=== PATIENT | female | born 1995 | race Caucasian/White ===

== ENCOUNTER 2021-12-27 01:16 | Day surgery (SDC) | payer OTHER, SELFPAY ==
[2021-12-21 14:10] VITALS: BMI 31.8
--- NOTE | 2021-12-21 14:56 | PC.NURSE ---
Report to the Outpatient Waiting Room, entrance under the green pavilion located off [facility], at time 0600 on 12-27-21. OR Time: 0730. - You and your visitor will be asked a series of questions to screen for COVID 19 for your protection. - Only one visitor is allowed at this time. - The patient visitor is requested to leave or wait in car when not with patient. - A mask is required within the hospital. Patients may have clear liquids (water, carbonated beverages, clear teas, apple juice) until 3 hours prior to surgery with a maximum of 20 ounces. 0430; No coffee - No food from midnight until time of surgery - Infants may have breast milk until 4 hours before surgery, infant formula 6 hours prior to surgery. - Children will be allowed to drink immediately following surgery. If applicable, please bring a bottle or sippy cup to assist with drinking. Juice, water, soda, and popsicles are readily available. For infants on formula, please bring formula the day of surgery. Pacifiers are allowed. Take the following medications with a SIP of water the morning of surgery: None Medications to discontinue per physician: N/A Please no make-up, nail [place], hairspray, perfume, deodorant, or body powder the day of surgery. No jewelry (including any body piercings) or valuables the day of surgery, leave them at home. Please take a shower or bath the night before, or the morning of, surgery with an antibacterial soap. Wear comfortable, loose fitting clothing. Children are encouraged to wear pajamas. - Jewelry must be removed prior to entering the operating room. Rings and piercings that are not removed may be cut off. - The hospital will not accept responsibility for valuables. - Please leave all valuables, including medications, at home the day of surgery. If you are going home after surgery, a licensed rental car ferry driver must drive you home. - NO public transportation without another adult. - We recommend that an adult stay with you for 24 hours following discharge. - We also recommend that you do not drive, make important decision, drink alcoholic beverages, or take any drugs that were not prescribed by your health care provider for at least 24 hours after your discharge time. For Pediatric surgeries, we recommend two adults accompany the child home (only one inside the building at this time). Follow any additional instructions given to you from your surgeon. If you or anyone in your household have experienced Covid symptoms in the past week, please notify your surgeon or the nurse liaison at the phone number below for possible testing. Telephone instructions given to Lisbeth Sandoval and asked if any additional questions and then verbalized understanding. Patient advised to call surgeon office or pre surgery nurse liaison [phone] if any additional questions.
--- NOTE | 2021-12-26 13:37 | P.PNAN_ITS ---
Anes - Initial Pre Proc Eval Procedure: Operation Date: 12/27/21 07:30 Proposed Procedures p Laparoscopic Bilateral Salpingectomy - Destiny Rubin MD Date/Time: 12/26/21 13:37 Surgeon: Destiny Rubin MD Pre Op Diagnosis: Desires Sterilization Patient Data Age: 26 Gender: F Height: 1.6 m Weight: 81.65 kg Allergies Allergy/AdvReac Type Severity Reaction Status Date / Time No Known Allergies Allergy Verified 12/21/21 14:05 Home Medications Medication Instructions Recorded Confirmed Type naproxen 500 mg tablet 500 mg PO BID 12/21/21 12/27/21 History Patient hx anesthesia problems: none Family hx anesthesia problems: none Results Review: All pre-operative results and documents have been reviewed as part of the pre- operative evaluation. [facility] Social History Social History Smoking packs per day: 1.5 Smoking cigarettes per day: 30.0 Years smoked: 15 Smoking pack-years: 22.50 Smoking status: Former smoker Tobacco type: cigarettes Second hand tobacco smoke exposure: Yes Smoking end date: 10/03/21 Alcohol intake: never Substance use: never Substance use type: does not use Last use: 10/2021 Living arrangements: with family Spiritual care concerns: No Anes - Eval Final PreProcedure Day of Procedure 12/26/21 13:37 Patient weight: normal Heart: regular rate and rhythm Lungs: clear to auscultation Airway: Mallampati scale class II Neurological: alert and oriented Last oral intake: >/= 8 hours ASA classification: II Emergent: no Anesthetic plan: proceed Anesthesia type and monitoring: general ETT and standard monitoring Results Review: All pre-operative results and documents have been reviewed as part of the pre-operative evaluation. Informed Consent: The patient's anesthetic plan and its attendant risks and benefits were discussed with the patient/family/POA. Questions were solicited and answers provided to the satisfaction of the patient/family/POA.
[2021-12-27] VITALS (10 sets, daily range): BP systolic 102–132; BP diastolic 47–76; PULSE 52–77; RESP 14–20; TEMP 36.1–36.6; O2SAT 92–100
--- NOTE | 2021-12-27 05:58 | ECG_ITS ---
Measurements Intervals [place] Rate: 58 P: 19 MT: 172 QRS: 67 QRSD: 89 T: 24 QT: 399 QTc: 394 Interpretive Statements SINUS BRADYCARDIA WITH SINUS ARRHYTHMIA BORDERLINE ECG Electronically Signed On 12-27-2021 8:09:37 CDT by Parveen Johnson D.O.
[2021-12-27] MEDS: LACTATED RINGERS 1,000 ML 30 ML IV CONT (06:25)
[2021-12-27] MEDS: KETOROLAC 15 MG/ML VIAL (*BKC) IV PUSH (06:36)
[2021-12-27] MEDS: ACETAMINOPHEN 500 MG TABLET 1000 MG PO (06:36)
--- NOTE | 2021-12-27 07:04 | SUR.PREOP ---
anesthesia aware that patient has nose ring she is unable to remove and has signed jewelry waiver.
--- NOTE | 2021-12-27 07:05 | WPDHPUPDATE1 ---
History and Physical Update Update Date/Time: 12/27/21 07:05 History and Physical has been reviewed, including an updated exam of the patient. There are NO changes in the patient's condition. Risks, benefits, and alternatives have been discussed and questions answered. Patient agrees to proceed with procedure.
--- NOTE | 2021-12-27 07:11 | PM.IMHP ---
H&P: HPI History of Present Illness Date/Time: 12/27/21 07:11 Chief Complaint: Female sterilization Narrative: This patient is a 26-year-old female who desires infertility. We have agreed to perform laparoscopic bilateral salpingectomy. She understands that there are risks to the procedure. She understands that injuries may occur that result in hospitalization, more surgery, severe illness. She understands there is risk of hemorrhage and infection. She denies any nausea, vomiting, fever, chills. She denies any chest pain shortness of breath. Review of Systems Review of Systems: All systems reviewed & are unremarkable except as noted in HPI and below Constitutional: Constitutional: Denies chills, Denies fatigue, Denies fever(s) and Denies weakness Eyes: Eyes: Denies blurry vision, Denies change in vision, Denies loss of peripheral vision, Denies loss of vision, Denies other visual disturbances and Denies eye pain ENT: Denies vertigo, Denies dizziness, Denies hearing loss, Denies mouth pain, Denies nasal obstruction, Denies neck mass and Denies neck pain Cardiovascular: Cardiovascular: Denies chest pain, Denies diaphoresis, Denies syncope, Denies leg edema and Denies dyspnea Respiratory: Respiratory: Denies chest congestion, Denies cough, Denies hemoptysis, Denies dyspnea and Denies wheezing Gastrointestinal: Gastrointestinal: Denies abdominal pain, Denies constipation, Denies diarrhea, Denies nausea and Denies vomiting Genitourinary: Genitourinary: Denies hematuria, Denies change in libido, Denies nocturia, Denies genital lesions, Denies flank pain and Denies urinary urgency Musculoskeletal: Musculoskeletal: Denies abnormal gait, Denies back pain, Denies myalgias, Denies arthralgias, Denies joint swelling, Denies muscle weakness and Denies neck pain Integumentary/Breasts: Skin/Breast: Denies swelling, Denies breast pain, Denies breast mass, Denies dry skin, Denies nipple discharge, Denies unusual bruising and Denies jaundice Neurologic: Denies Neuro-related abnormal movements, Denies Abnormal speech present, Denies abnormal gait, Denies behavioral changes, Denies confusion, Denies vertigo, Denies dizziness, Denies syncope, Denies loss of vision, Denies memory loss, Denies convulsions and Denies weakness Psychiatric: Psychiatric: Denies abnormal sleep pattern, Denies behavioral changes, Denies change in libido, Denies confusion, Denies depression, Denies anhedonia and Denies memory loss Endocrine: Endocrine: Reports no additional endocrine complaints, Denies change in libido and Denies fatigue Hematologic/Lymphatic: Hematologic/Lymphatic: Reports no additional hematologic/lymphatic complaints Allergic/Immunologic: Allergic/Immunologic: Reports no additional allergic/immunologic complaints and Denies wheezing PMFSH Social History Social History Smoking packs per day: 1.5 Smoking cigarettes per day: 30.0 Years smoked: 15 Smoking pack-years: 22.50 Smoking status: Former smoker Tobacco type: cigarettes Second hand tobacco smoke exposure: Yes Smoking end date: 10/03/21 Alcohol intake: never Substance use: never Substance use type: does not use Last use: 10/2021 Living arrangements: with family Spiritual care concerns: No Meds Home Medications and Allergies Home Medications Medication Instructions Recorded Confirmed Type naproxen 500 mg tablet 500 mg PO BID 12/21/21 12/27/21 History Allergies Allergy/AdvReac Type Severity Reaction Status Date / Time No Known Allergies Allergy Verified 12/21/21 14:05 Vital Signs Vital Signs - 24 hr 12/27/21 06:09 Temperature 97.0 F L Pulse Rate 75 Respiratory Rate 16 Blood Pressure 132/57 L Pulse Oximetry 100 Oxygen Delivery Room Air Exam Const: General: cooperative, healthy appearing, comfortable and no acute distress; No confusion Orientation/consciousness: oriented to person, oriented to place, oriented to time and No confusio
--- NOTE | 2021-12-27 07:30 | WPDHPUPDATE1 ---
History and Physical Update Update Date/Time: 12/27/21 07:30 To remove IUD History and Physical has been reviewed, including an updated exam of the patient. There are NO changes in the patient's condition. Risks, benefits, and alternatives have been discussed and questions answered. Patient agrees to proceed with procedure.
--- NOTE | 2021-12-27 08:14 | W.PM.PROC2 ---
Procedure Note - Detailed Date of Procedure 12/27/21 Pre-op Diagnosis Desires Sterilization, contraception management Post-op Diagnosis Same Procedure Performed Laparoscopic bilateral salpingectomy, IUD removal Surgeon Destiny Rubin MD Anesthesia General Indications Unwanted fertility Findings Normal pelvic anatomy Description of Procedure The patient was taken the operating room. She was prepped and draped in the dorsal lithotomy position after induction of general anesthesia. Speculum was placed in the vagina. The IUD string was grasped with a ring forceps and removed. A 5 mm skin incision was made in the left upper quadrant of the abdominal skin. A 5 mm trocar was inserted the intra-abdominal cavity under direct visualization of the scope. Pneumoperitoneum was achieved. A 5 mm trocar was inserted in the left lower quadrant identical fashion. A 5 mm infraumbilical trocar was inserted in identical fashion as well. The bilateral fallopian tubes were removed. This was done by using a LigaSure cautery. The mesosalpinx adjacent to the tube was cauterized transected with LigaSure. This was initiated in the area the ovary and in a stepwise fashion moved medially to the area of the cornu of the uterus. Once there the fallopian tube was cauterized and transected. This was done in identical fashion on each side. The fallopian tubes were taken out through the left lower quadrant trocar site. The pneumoperitoneum was reduced. The trocars removed. The skin was closed with subcuticular 4 Monocryl and covered with Dermabond. She was taken to cover stable condition. Sponge lap and needle counts were correct x2. Estimated Blood Loss 5 Drains No Packing No Pathology Yes Complications No immediate complications Condition Stable Disposition PACU
--- NOTE | 2021-12-27 08:39 | WPDHPUPDATE1 ---
History and Physical Update Update Date/Time: 12/27/21 08:39 History and Physical has been reviewed, including an updated exam of the patient. There are NO changes in the patient's condition. Risks, benefits, and alternatives have been discussed and questions answered. Patient agrees to proceed with procedure.
[2021-12-27] MEDS: fentaNYL CITRATE INJ (*CRX) 100 MCG/2 ML VIAL 25 MCG IV PUSH ×4 (08:53→09:02)
[2021-12-27] MEDS: oxyCODONE HCL (*CRX) 5 MG TAB IR PO (09:32)
== END 2021-12-27 10:45 | disposition home or self-care (01) ==
PROVIDERS: Visit Provider Obstetrics & Gynecology
PROC: (CPT 58671; principal; 2021-12-27 07:30)
DX: Z30.2 Encounter for sterilization (principal); Z30.432 Encounter for removal of intrauterine contraceptive device; Z87.891 Personal history of nicotine dependence
CPT/HCPCS: 58661; 58301; 88302; 93005; A9270; J1100; J1885; J2250; J2405; J2704; J3010; J7120

== ENCOUNTER 2022-01-18 18:01 | Emergency (ER) | payer OTHER, SELFPAY ==
--- NOTE | ~2022-01-18 | CT_ITS ---
EXAMINATION: CT soft tissue neck w con DATE: 01/18/2022 21:20 INDICATION: Right medial malleolar fracture and edema, trismus, possible TECHNIQUE: Computed tomographic of the neck was performed with 100 mL Omnipaque-350 intravenous contr ast. Exam dose: 526.49 mGy-cm total exam DLP. COMPARISON: None. FINDINGS: There is a periapical abscess associated with the posterior-most right mandibular molar, wi th bone destruction along the medial wall of the mandible, with some periosteal new bone formation no paxton. In addition, there is subjacent sublingual space abscess cavity measuring approximately 11 x 14 mm, situated along the inner aspect of the angle of the mandible. There are are some asymmetric up to approximately 5.6 x 9.2 mm submandibular lymph nodes on the right . There is a 6.5 x 7.2 right submental lymph node. There are bilateral posterior triangle lymph nodes, measuring up to 6.2 x 12.5 mm on the right, 5 x 1 2.8 mm on the left. No compromise of the nasopharyngeal or oropharyngeal airway is noted. The paranasal sinuses and mastoid air cells are normally developed and aerated. The orbital contents are unremarkable. Normal size and homogeneous enhancement of the thyroid gland. No superior mediastinal mass lesion or lymphadenopathy. Included upper lung swain are clear. The parotid and submandibular glands are unremarkable. . IMPRESSION: Posterior-most right mandibular molar periapical abscess with bone destruction along the medial wall, with subjacent sublingual 11 x 14 mm abscess; no nasopharyngeal or oropharyngeal airway compromise is noted There is mild reactive lymphadenopathy in the submandibular, submental and posterior triangle lymph n ode compartments . Reviewed, dictated and finalized at [facility]. Reviewed, dictated and finalized at [facility]. IMPRESSION: Posterior-most right mandibular molar periapical abscess with bone destruction along the medial wall, with subjacent sublingual 11 x 14 mm abscess ; no nasopharyngeal or oropharyngeal airway compromise is noted There is mild reactive lymphadenopathy in the submandibular, submental and post erior triangle lymph node compartments .
[2022-01-18 18:05] VITALS: BP 119/67; PULSE 78; RESP 18; TEMP 36.8; O2SAT 98
--- NOTE | 2022-01-18 20:17 | ED.DENTAL ---
HPI - Dental/Oral General Chief complaint: Dental/Oral Stated complaint: TOOTH INFECTION, DIFF OPENING MOUTH Time Seen by Provider: 01/18/22 20:17 History of Present Illness HPI Narrative: Patient is a 26-year-old female presenting to the emergency department for evaluation of right-sided lower dental pain worsening over the past 72 hours. Patient reports difficulty opening her mouth secondary to pain and swelling on the right lower jaw area and right neck. Patient denies fever, chills, nausea or vomiting. She has not been a tolerate much oral intake secondary to difficulty opening her mouth. She reports she has been compliant with oral clindamycin which prescribed prescribed to her at [facility]. Patient states that she is supposed to have tooth extraction on the at her dental office. Patient reports aching pain is worse when she tries to open her mouth. She is not been taking any pain medication. Patient denies any shortness of breath. Denies cough. Related Data Home Medications Medication Instructions Recorded Confirmed naproxen 500 mg tablet 500 mg PO BID 12/21/21 12/27/21 Allergies Allergy/AdvReac Type Severity Reaction Status Date / Time No Known Allergies Allergy Verified 12/21/21 14:05 Review of Systems Review of Systems: CONSTITUTIONAL: Denies fever, chills, or sweats. EYES: Denies visual changes, redness, or discharge. ENT: Denies rhinorrhea, congestion, sore throat, or otalgia. Reports right-sided facial swelling, neck swelling. Reports dental pain. CARDIOVASCULAR: Denies chest pain, palpitations, or edema. RESPIRATORY: Denies cough or dyspnea. GASTROINTESTINAL: Denies abdominal pain, nausea, vomiting, or diarrhea. GENITOURINARY: Denies dysuria or hematuria. SKIN: Denies facial redness MUSCULOSKELETAL: Denies back pain NEUROLOGIC: Denies headache [facility] Past Medical History Medical History (Updated 01/18/22 @ 23:07 by Mary Alice Pickard MD) Encounter for female sterilization procedure Post-op pain Social History Social History Smoking packs per day: 1.5 Smoking cigarettes per day: 30.0 Years smoked: 15 Smoking pack-years: 22.50 Smoking status: Former smoker Tobacco type: cigarettes Second hand tobacco smoke exposure: Yes Smoking end date: 10/03/21 Alcohol intake: never Substance use: never Substance use type: does not use Last use: 10/2021 Spiritual care concerns: No Exam Narrative: GENERAL: Awake, alert, conversant HEAD: Normocephalic, atraumatic. EYES: PERRLA and EOMI. ENT: Nares clear, no rhinorrhea or epistaxis. Mucous membranes appear moist. She does have trismus and potential subtle elevation of the floor of the mouth. Patient does not have tongue protrusion. No drooling. She is protecting her airway. She does have mild right lower facial edema without significant erythema or induration. NECK: Fullness and tenderness right anterior neck. No erythema. No significant neck edema. CHEST: No respiratory distress, breathing even and non labored HEART: Regular rate, sinus rhythm ABDOMEN:Non distended, non tender EXTREMITIES: Normal range of motion. No edema. SKIN: Warm, dry, no rash. NEURO:No focal deficits. Alert and oriented x3 Course Vital Signs Vital signs: Vital Signs Temperature 36.8 C 01/18/22 18:05 Pulse Rate 78 01/18/22 18:05 Respiratory Rate 18 01/18/22 18:05 Blood Pressure 119/67 01/18/22 18:05 Pulse Oximetry 98 01/18/22 18:05 Oxygen Delivery Room Air 01/18/22 18:05 Temperature 36.8 C 01/18/22 18:05 Pulse Rate 78 01/18/22 18:05 Respiratory Rate 18 01/18/22 18:05 Blood Pressure 119/67 01/18/22 18:05 Pulse Oximetry 98 01/18/22 18:05 Oxygen Delivery Room Air 01/18/22 18:05 MDM - Dental/Oral MDM Narrative Medical decision making narrative: Patient presenting for evaluation of right sided neck edema, right mandibular swellin
[2022-01-18 21:02] LABS: Basophils Absolute Auto 0.1 K/mm3 (0.0-0.1); Basophils Percent Auto 0.6 % (0.2-1.2); Eosinophils Absolute Auto 0.2 K/mm3 (0-0.3); Eosinophils Percent Auto 1.4 % (0-4.4); Hematocrit 42.8 % (37.0-47.0); Hemoglobin 14.2 g/dL (12.0-15.0); Immature Granulocyte Absolute 0.05 K/mm3 (0.00-0.031); Immature Granulocyte Percent A 0.4 % (0-0.5); Lymphocytes Absolute Auto 3.03 K/mm3 (0.9-3.2); Lymphocytes Percent Auto 26.7 % (18.3-44.2); Mean Corpuscular HGB Conc 33.2 g/dl (32-36); Mean Corpuscular Volume 84.4 fl (80-100); Mean Platelet Volume 9.8 fl (7.4-10.4); Monocytes Absolute Auto 0.7 K/mm3 (0.1-0.6); Monocytes Percent Auto 6.3 % (2.6-8.5); Neutrophils Absolute Auto 7.3 K/mm3 (1.3-6.7); Neutrophils Percent Auto 64.6 % (45.5-73.1); Platelet Count Result 380 k/mm3 (150-375); Red Blood Count 5.07 M/mm3 (4.2-5.4); Red Cell Distribution Width 12.6 % (11.5-14.5); White Blood Count 11.4 K/mm3 (4.5-10.0)
[2022-01-18 21:09] LABS: Anion Gap 9 mmol/L (8-16); Blood Urea Nitrogen 12 mg/dL (7-17); Calcium 8.8 mg/dL (8.4-10.2); Carbon Dioxide 24 mmol/L (22-30); Chloride 106 mmol/L (98-107); Estimated CRCL calculation 120 ml/min; Estimated Glomerular Filt Rate > 60; Glucose 85 mg/dL (65-110); Sodium 139 mmol/L (137-145)
[2022-01-18 21:10] LABS: Estimated CRCL calculation 142 ml/min; Estimated Glomerular Filt Rate > 60
[2022-01-18] MEDS: SODIUM CHLORIDE 0.9% IV 1,000 ML 999 ML IV CONT (21:23)
[2022-01-18] MEDS: CLINDAMYCIN 600 MG/D5W 50 ML 600 MG/50 ML PIGGYBACK 100 MG IVPB (22:53)
[2022-01-18 23:40] VITALS: BP 102/63; PULSE 72; RESP 18; O2SAT 100
== END 2022-01-18 23:43 | disposition short-term general hospital (02) ==
PROVIDERS: Emergency Provider Emergency Medicine
DX: K04.7 Periapical abscess without sinus (principal); Z87.891 Personal history of nicotine dependence
CPT/HCPCS: 36415; 70491; 80048; 81025; 85025; 96365; 96375; 99284; J0131; J7030; Q9967

== ENCOUNTER 2023-03-16 16:42 | Emergency (ER) | payer OTHER, SELFPAY ==
--- NOTE | ~2023-03-16 | CT_ITS ---
EXAMINATION: CT soft tissue neck w con DATE: 03/16/2023 18:28 INDICATION: Left-sided dental infection. TECHNIQUE: Computed tomography (CT) of the neck was performed with 75 mL Omnipaque-350 intravenous co ntrast. Automated exposure control and iterative reconstruction technique were employed. The dose-susanna gth product was 536.04 mGy-cm. COMPARISON: CT neck 01/18/2022 FINDINGS: There are no pathologically enlarged lymph nodes. The cervical carotid arteries were normal . The paranasal sinuses are clear. The mastoid air cells are normal. There are carious lesions of 1, 4, and 5. There is a carious lesion of 19 with periapical lucency. No soft tissue abscess. There is m ild cervical spondylosis. IMPRESSION: 1. Dental disease. Reviewed, dictated and finalized at [facility]. IMPRESSION: 1. Dental disease.
[2023-03-16 16:44] VITALS: BP 120/66; PULSE 54; RESP 16; TEMP 36.6; O2SAT 98
--- NOTE | 2023-03-16 17:09 | ED.GENADULT ---
HPI - General Adult General Chief complaint: Unspecified Stated complaint: dental Time Seen by Provider: 03/16/23 17:09 History of Present Illness HPI narrative: patient is a 27-year-old female with no past medical history presents to the ED today with dental pain and facial swelling. Patient states that approximately 1 week ago she began having pain on the left lower teeth. She states she is seen a dentist in the past for this tooth and they have done everything we can to not pull the tooth . She notes that 4 days ago she was seen at outside facility where they started her on amoxicillin and tramadol. She notes that she has had persistent worsening of the pain and swelling since that time. Pain is located in left lower jaw and radiates to the ear and down into the left neck. She does believe she had a subjective fever last night. She denies any difficulty swallowing. She has noted a foul taste in her mouth since yesterday. She has been taking tramadol, ibuprofen, Tylenol and is unable to resolve her pain. No trauma. Related Data Home Medications Medication Instructions Recorded Confirmed naproxen 500 mg tablet 500 mg PO BID 12/21/21 12/27/21 Allergies Allergy/AdvReac Type Severity Reaction Status Date / Time No Known Allergies Allergy Verified 03/16/23 18:51 Review of Systems Review of Systems: CONSTITUTIONAL: Fever EYES: Denies visual changes, redness, or discharge. ENT: Dental pain, facial swelling, Denies rhinorrhea CARDIOVASCULAR: Denies chest pain, palpitations, or edema. RESPIRATORY: Denies cough or dyspnea. GASTROINTESTINAL: Denies abdominal pain, nausea, vomiting, or diarrhea. GENITOURINARY: Denies dysuria or hematuria. SKIN: Denies rash or itching. MUSCULOSKELETAL: Denies back pain, joint pain, or myalgia. NEUROLOGIC: Denies headache, numbness, or weakness. PSYCHIATRIC: Denies anxiety or depression. [facility] Past Medical History Medical History (Updated 03/16/23 @ 18:59 by Alyssa Bauer MD) Encounter for female sterilization procedure Post-op pain Social History Social History Smoking packs per day: 1.5 Smoking cigarettes per day: 30.0 Years smoked: 15 Smoking pack-years: 22.50 Smoking status: Former smoker Tobacco type: cigarettes Second hand tobacco smoke exposure: Yes Smoking end date: 10/03/21 Alcohol intake: never Substance use: never Substance use type: does not use Last use: 10/2021 Living arrangements: with family Spiritual care concerns: No Exam Narrative: GENERAL: Well-appearing, well-nourished, and in no acute distress. HEAD: Normocephalic, atraumatic. EYES: PERRLA and EOMI. ENT: Nares clear. Mucous membranes moist. Trismus present. She has unilateral swelling over the left lower side. tenderness to tooth number 19. No obvious apical abscess. No fullness beneath the tongue. NECK: Supple. Tender left anterior cervical lymphadenopathy. CHEST: Clear to auscultation. No respiratory distress. HEART: Regular rate and rhythm. Normal peripheral pulses. ABDOMEN: Soft, nontender, nondistended. EXTREMITIES: Normal range of motion. No edema. SKIN: Warm, dry, no rash. NEURO: No focal deficits. Alert and oriented x3. PSYCH: Normal mood and affect. Course Course Emergency Course: Chart review performed. Nursing note states that patient is complaining of left sided dental pain. Vitals grossly within normal limits. Patient seen and evaluated, non toxic appearing. Patient has tenderness and trismus. She has had outpatient antibiotics but worsened. At this time will do CT soft tissue neck to evaluate for possible deep space infection. Will give dose of IV unasyn and IV pain medication. Lab work and imaging reviewed. No leukocytosis. Electrolytes and renal function within normal limits. CT consistent with dental disease, no abscess seen. Imaging reviewed by myself and agree with radiology interpretat
[2023-03-16 17:55] LABS: Basophils Percent Auto 0.6 % (0.2-1.2); Eosinophils Absolute Auto 0.1 K/mm3 (0-0.3); Eosinophils Percent Auto 0.9 % (0-4.4); Hematocrit 39.4 % (37.0-47.0); Hemoglobin 13.1 g/dL (12.0-15.0); Immature Granulocyte Absolute 0.02 K/mm3 (0.00-0.031); Immature Granulocyte Percent A 0.3 % (0-0.5); Lymphocytes Absolute Auto 2.74 K/mm3 (0.9-3.2); Lymphocytes Percent Auto 39.7 % (18.3-44.2); Mean Corpuscular HGB Conc 33.2 g/dl (32-36); Mean Corpuscular Hemoglobin 27.9 pg (26-34); Mean Platelet Volume 9.7 fl (7.4-10.4); Monocytes Absolute Auto 0.6 K/mm3 (0.1-0.6); Monocytes Percent Auto 8.6 % (2.6-8.5); Neutrophils Absolute Auto 3.5 K/mm3 (1.3-6.7); Neutrophils Percent Auto 49.9 % (45.5-73.1); Platelet Count Result 249 k/mm3 (150-375); Red Blood Count 4.69 M/mm3 (4.2-5.4); Red Cell Distribution Width 12.9 % (11.5-14.5); White Blood Count 6.9 K/mm3 (4.5-10.0)
[2023-03-16] MEDS: MORPHINE SULFATE (*CRX) 4 MG/ML INJ IV PUSH (17:57)
[2023-03-16] MEDS: ONDANSETRON INJ 4 MG/2 ML VIAL IV PUSH (17:57)
[2023-03-16 18:06] LABS: Alanine Aminotransferase 26 U/L (6-35); Albumin Level 4.3 g/dL (3.5-5.1); Alkaline Phosphatase 77 U/L (38-126); Anion Gap 8 mmol/L (8-16); Aspartate Amino Transferase 34 U/L (14-36); Bilirubin,Total 0.5 mg/dL (0.2-1.3); Blood Urea Nitrogen 16 mg/dL (7-17); Calcium 8.5 mg/dL (8.4-10.2); Carbon Dioxide 25 mmol/L (22-30); Chloride 105 mmol/L (98-107); Estimated CRCL calculation 122 ml/min; Estimated Glomerular Filt Rate > 60; Glucose 81 mg/dL (65-110); Potassium 3.7 mmol/L (3.4-5.0); Sodium 138 mmol/L (137-145)
[2023-03-16 18:53] VITALS: BP 120/66; PULSE 60; RESP 20; O2SAT 100
== END 2023-03-16 19:09 | disposition home or self-care (01) ==
PROVIDERS: Emergency Provider Student in an Organized Health Care Education/Training Program
DX: K02.9 Dental caries, unspecified (principal); Z87.891 Personal history of nicotine dependence
CPT/HCPCS: 36415; 70491; 80053; 85025; 96374; 96375; 99284; J2270; J2405; Q9967

== ENCOUNTER 2023-05-11 18:03 | Emergency (ER) | payer OTHER, SELFPAY ==
[2023-05-11 18:05] VITALS: BP 137/73; PULSE 65; RESP 17; TEMP 36.4; O2SAT 100
--- NOTE | 2023-05-11 18:06 | ED.DENTAL ---
HPI - Dental/Oral General Chief complaint: Dental/Oral Stated complaint: TOOTH PAIN Time Seen by Provider: 05/11/23 18:06 Source: patient Mode of arrival: ambulatory Limitations: no limitations History of Present Illness HPI Narrative: Patient is a very pleasant 27-year-old female who presents to the emergency department today for pain to the left lower back to that has been getting worse. She has been dealing with this for some time now. She did see the dentist and they took x-rays and made an appointment for her tooth to be pulled in 6 weeks. She states last few days the swelling has increased as well of the pain. She is not currently taking any medications. Denies fever chills. Denies any other symptoms or concerns at this time. Related Data Home Medications Medication Instructions Recorded Confirmed naproxen 500 mg tablet 500 mg PO BID 12/21/21 12/27/21 Allergies Allergy/AdvReac Type Severity Reaction Status Date / Time No Known Allergies Allergy Verified 05/11/23 18:29 Review of Systems Review of Systems: CONSTITUTIONAL: Denies fever, chills, or sweats. EYES: Denies visual changes, redness, or discharge. ENT: +left lower dental pain. jaw pain. denies difficulty swallowing. Denies rhinorrhea, congestion, sore throat, or otalgia . CARDIOVASCULAR: Denies chest pain, palpitations, or edema. RESPIRATORY: Denies cough or dyspnea. GASTROINTESTINAL: Denies abdominal pain, nausea, vomiting, or diarrhea. SKIN: Denies rash or itching. MUSCULOSKELETAL: Denies back pain, joint pain, or myalgia. NEUROLOGIC: Denies headache, numbness, or weakness. PSYCHIATRIC: Denies anxiety or depression. All systems reviewed & are unremarkable except as noted in HPI and below PMFSH Past Medical History Medical History (Updated 05/11/23 @ 18:51 by Diana Carranza APRN) Encounter for female sterilization procedure Post-op pain Social History Social History Smoking packs per day: 1.5 Smoking cigarettes per day: 30.0 Years smoked: 15 Smoking pack-years: 22.50 Smoking status: Former smoker Tobacco type: cigarettes Second hand tobacco smoke exposure: Yes Smoking end date: 10/03/21 Alcohol intake: never Substance use: never Substance use type: does not use Last use: 10/2021 Living arrangements: with family Spiritual care concerns: No Exam Narrative: GENERAL: Well-appearing, well-nourished, and in no acute distress. HEAD: Normocephalic, atraumatic. mild swelling to the left lower aspect of jaw. There is dental tenderness to left 1st molar (tooth 19) with surrounding gingival erythema/edema. no palpable apical abscess noted. tooth has small crack and cavity noted. EYES: PERRLA and EOMI. ENT: Nares clear, no rhinorrhea or epistaxis. Mucous membranes moist. NECK: Supple. CHEST: respirations regular and non-labored HEART: Regular rate SKIN: Warm, dry, no rash. NEURO: No focal deficits. Alert and oriented x3. PSYCH: Normal mood and affect. Course Vital Signs Vital signs: Vital Signs Temperature 97.5 F L 05/11/23 18:05 Pulse Rate 65 05/11/23 18:05 Respiratory Rate 17 05/11/23 18:05 Blood Pressure 137/73 05/11/23 18:05 Pulse Oximetry 100 05/11/23 18:05 Oxygen Delivery Room Air 05/11/23 18:05 Temperature 97.5 F L 05/11/23 18:05 Pulse Rate 65 05/11/23 18:05 Respiratory Rate 17 05/11/23 18:05 Blood Pressure 137/73 05/11/23 18:05 Pulse Oximetry 100 05/11/23 18:05 Oxygen Delivery Room Air 05/11/23 18:05 MDM - Dental/Oral MDM Narrative Medical decision making narrative: Patient with worsening dental pain and dental decay. No palpable abscess. No systemic signs or symptoms. Antibiotics course has been provided as well as anti-inflammatories and viscous lidocaine for pain and peridex oral solution.discussed other supportive care measures. she has dental appointment in 6 weeks for removal of to
[2023-05-11] MEDS: LIDOCAINE HCL 2% VISC SOLN 15 ML UDC 5 ML PO (18:24)
[2023-05-11] MEDS: KETOROLAC 30 MG/ML VIAL (*BKC) IM (18:24)
== END 2023-05-11 19:00 | disposition home or self-care (01) ==
PROVIDERS: Emergency Provider Nurse Practitioner
DX: K02.9 Dental caries, unspecified (principal); R22.0 Localized swelling, mass and lump, head; Z87.891 Personal history of nicotine dependence
CPT/HCPCS: 96372; 99283; J1885